=== PATIENT | male | born 1990 | race Caucasian/White ===

== ENCOUNTER 2016-08-21 15:05 | Emergency (ER) | payer SELFPAY ==
[2016-08-21 15:39] LABS: BASOPHIL 0.3 % (0-2); EOSINOPHIL 3.4 % (0-5); HGB 14.7 g/dl (13.2-18.0); LYMPHOCYTE 25.3 % (15-48); MCH 28.1 pg (25.0-31.0); MCHC 34.2 g/dL (32.0-36.0); MCV 82.2 fL (78.0-100.0); MONOCYTE 6.3 % (0-12); MPV 11.2 fL (6.0-9.5); NEUTROPHIL 64.7 % (41-80); PLT 252 K/uL (150-400); RBC 5.23 M/uL (4.70-6.00); RDW 14.5 % (11.5-14.0); WBC 14.2 K/uL (4.0-10.5)
[2016-08-21 15:50] LABS: CREATININE 1.1 mg/dL (0.7-1.2); POTASSIUM 4.2 mmol/L (3.5-5.1)
== END 2016-08-21 18:02 | disposition home or self-care (01) ==
LOC: FER 15:05
PROVIDERS: Emergency Medicine
DX: T78.40XA Allergy, unspecified, initial encounter (principal); F17.210 Nicotine dependence, cigarettes, uncomplicated; Z91.013 Allergy to seafood
CPT/HCPCS: 36415; 80048; 85025; J2930

== ENCOUNTER 2021-08-10 15:20 | Emergency (ER) | payer SELFPAY ==
[~2021-08-10 15:20] MED LIST: BACTRIM DS TAB1 EACH PO; NORCO 5-325 TA1 EACH PO; PERCOCET 5-3251 EACH PO; ZOFRAN4 MG PO
[2021-08-10] MEDS ORDERED: DOXYCYCLINE HY100 MG PO (16:11)
== END 2021-08-10 16:16 | disposition home or self-care (01) ==
LOC: FER 15:20
DX: L02.416 Cutaneous abscess of left lower limb (principal); F17.210 Nicotine dependence, cigarettes, uncomplicated; Z28.310 Unvaccinated for COVID-19
CPT/HCPCS: 99283

== ENCOUNTER 2021-09-25 23:36 | Emergency (ER) | payer SELFPAY ==
[~2021-09-25 23:36] MED LIST changes: +DOXYCYCLINE HY100 MG PO
[2021-09-26 00:58] LABS: INFLUENZA A NAA NEGATIVE (NEGATIVE)
[2021-09-26 01:01] LABS: CORONAVIRUS 2019 SARS-COV-2 POSITIVE (NEGATIVE)
[2021-09-26] MEDS ORDERED: ONDANSETRON ODT4 MG PO (01:04)
== END 2021-09-26 01:56 | disposition home or self-care (01) ==
LOC: FER 23:36
PROVIDERS: Emergency Medicine
DX: U07.1 COVID-19 (principal); F17.200 Nicotine dependence, unspecified, uncomplicated; Z28.310 Unvaccinated for COVID-19; Z91.013 Allergy to seafood
CPT/HCPCS: 93005; Q0169; U0002

== ENCOUNTER 2021-10-03 23:13 | Emergency (ER) | payer OTHER ==
[~2021-10-03 23:13] MED LIST changes: +ONDANSETRON ODT4 MG PO
[2021-10-04 00:24] LABS: BASOPHIL 0.7 % (0-2); EOSINOPHIL 3.9 % (0-5); HCT 44.9 % (42.0-52.0); HGB 14.9 g/dl (13.2-18.0); LYMPHOCYTE 24.4 % (15-48); MCH 27.7 pg (25.0-31.0); MCHC 33.2 g/dL (32.0-36.0); MCV 83.6 fL (78.0-100.0); MONOCYTE 4.5 % (0-12); NEUTROPHIL 65.3 % (41-80); NRBC 0; PLT 221 K/uL (150-400); RBC 5.37 M/uL (4.70-6.00); RDW 13.5 % (11.5-14.0); WBC 11.7 K/uL (4.0-10.5)
[2021-10-04 00:49] LABS: BUN/CREAT RATIO (CALC) 15.9 RATIO; CREATININE 0.88 mg/dL (0.67-1.17); POTASSIUM 4.3 mmol/L (3.5-5.1)
[2021-10-04] MEDS ORDERED: VENTOLIN HFA IN18 GM INH (01:42)
[2021-10-04] MEDS ORDERED: PREDNISONE 20MG20 MG PO (01:42)
[2021-10-04] MEDS ORDERED: AZITHROMYCIN250 MG PO (01:42)
== END 2021-10-04 02:35 | disposition home or self-care (01) ==
LOC: FER 23:13
PROVIDERS: Internal Medicine
DX: U07.1 COVID-19 (principal); J45.901 Unspecified asthma with (acute) exacerbation; R07.89 Other chest pain; F17.210 Nicotine dependence, cigarettes, uncomplicated; Z91.013 Allergy to seafood; Z28.310 Unvaccinated for COVID-19
CPT/HCPCS: 36415; 71045; 80048; 84484; 85025; 85379; 93005; 94640; 94664; J1100